=== PATIENT | male | born 1965 | race Caucasian/White ===

== ENCOUNTER 2022-10-21 07:47 | Emergency (ER) | payer BC ==
[~2022-10-21] VITALS: Ht 182.9 cm; Wt 100.0 kg
[2022-10-21 07:52] VITALS: O2SAT 99
[2022-10-21] MEDS ORDERED: ONDANSETRON HCL 4MG/2ML INJ IV STA (07:52)
[2022-10-21] MEDS ORDERED: MORPHINE SULFATE 4 MG/ML CPJ (NOT FOR IM USE) IV STA (07:52)
[2022-10-21 09:09] LABS: BASOPHILS % 0.2 % (0.0-2.0); EOSINOPHILS % 0.1 % (0.0-5.0); HEMATOCRIT. 47.3 % (42.0-52.0); HEMOGLOBIN. 16.5 g/dL (14.0-18.0); LYMPHOCYTES % 8.2 % (20.0-50.0); MEAN CORPUSCULAR HEMOGLOBIN 32.4 pg (28.0-32.0); MEAN CORPUSCULAR VOLUME 92.7 fL (80.0-94.0); MEAN PLATELET VOLUME 9.4 fl (7.4-10.4); MONOCYTES % 4.8 % (2.0-8.0); NEUTROPHILS % 86.7 % (40.0-76.0); PLATELET 180 x1000/uL (130-400); RED CELL DISTRIBUTION WIDTH 13.9 % (11.6-14.6); WHITE BLOOD COUNT 10.2 x1000/uL (4.5-11.0)
[2022-10-21] MEDS ORDERED: MORPHINE SULFATE 4 MG/ML CPJ (NOT FOR IM USE) IV ONE (09:15)
[2022-10-21] MEDS ORDERED: SODIUM CHLORIDE 0.9% 1,000 ML IV ONE (09:15)
[2022-10-21 10:29] LABS: INDEX HEMOLYSI 4 (1-3); INDEX ICTERIC 1 (1-4); INDEX LIPEMIC 1 (1-3)
[2022-10-21 10:31] LABS: CHLORIDE 105 mEq/L (98-107); SODIUM 136 mEq/L (136-145)
[2022-10-21 10:42] LABS: ALANINE AMINOTRANSFERASE 45 IU/L (13-61); ALBUMIN 4.6 g/dL (3.4-5.0); ASPARTATE AMINOTRANSFERASE 35 IU/L (15-37); BILIRUBIN TOTAL 1.3 mg/dL (0.1-1.0); CARBON DIOXIDE 21 mEq/L (21-32); CREATININE 0.9 mg/dL (0.6-1.3); GLUCOSE 136 mg/dL (70-105); PROTEIN TOTAL 8.7 g/dL (6.0-8.3); UREA NITROGEN BLOOD 14 mg/dL (7-21)
[2022-10-21 10:58] LABS: TROPONIN I HIGH SENSITIVITY < 4 ng/L (<78)
[2022-10-21 10:59] LABS: POTASSIUM 4.2 mEq/L (3.5-5.1)
[2022-10-21] MEDS ORDERED: KETOROLAC 15MG/ML VIAL IV PRN (13:00)
[2022-10-21] MEDS ORDERED: GUAIFENESIN 200MG/10ML SUGAR FREE UDC PO PRN (13:00)
[2022-10-21] MEDS ORDERED: CLONIDINE 0.1MG TABLET PO PRN (13:00)
[2022-10-21] MEDS ORDERED: NITROGLYCERIN 0.4MG TABLET SL SL PRN (13:00)
[2022-10-21] MEDS ORDERED: IPRATROPIUM/ALBUTEROL 0.5-3(2.5)MG/3ML NEB NEB PRN (13:00)
[2022-10-21] MEDS ORDERED: DOCUSATE SODIUM 100MG CAPSULE PO PRN (13:00)
[2022-10-21] MEDS ORDERED: MAGNESIUM/ALUMINUM HYDROXIDE/SIMETHICONE 30ML UDC PO PRN (13:00)
[2022-10-21] MEDS ORDERED: TAMSULOSIN HCL 0.4MG SR CAPSULE PO SCH (13:00)
[2022-10-21] MEDS ORDERED: ACETAMINOPHEN 325MG TABLET PO PRN ×2 (13:00)
[2022-10-21] MEDS ORDERED: ONDANSETRON HCL 4MG/2ML INJ IV PRN (13:00)
[2022-10-21] MEDS ORDERED: SODIUM CHLORIDE 0.9% 1,000 ML IV SCH (13:30)
[2022-10-21] MEDS ORDERED: ENOXAPARIN 40MG/0.4ML SYR SUBCUT SCH (14:00)
[2022-10-21] MEDS ORDERED: OXYC-100 PO (14:19)
[2022-10-21 15:08] VITALS: BP 145/79; PULSE 65; RESP 16; TEMP 98.4
[2022-10-21] MEDS ORDERED: ZOLPIDEM TARTRATE 5MG TABLET PO PRN (21:00)
[2022-10-22] MEDS ORDERED: PANTOPRAZOLE SODIUM 40 MG/VIAL IV SCH (09:00)
== END 2022-10-21 15:10 | disposition home or self-care (01) ==
LOC: ER 08:05 → EDBEDREQ 12:34 → EDBEDREQTM 12:34 → CANBEDREQ 14:52 → ER 15:10
DX: R10.9 Unspecified abdominal pain (principal)
CPT/HCPCS: 80053; 83036; 83690; 85025; 84484; 36415; 74176; 93005; 96361; 96374; 96375; 96376; 99285; J2405; J2270; J7030; Z7610 ×2